=== PATIENT | male | born 1955 | race Caucasian/White ===

== ENCOUNTER 2018-08-02 10:46 | Emergency (ER) | payer OTHER ==
[~2018-08-02] VITALS: Ht 177.8 cm; Wt 77.3 kg
[2018-08-02 10:51] VITALS: Ht 177.8 cm; Wt 77.3 kg
[2018-08-02] MEDS ORDERED: INSULIN (10:51)
[2018-08-02 11:12] LABS: BASOPHILS 0.1 % (0-2); EOSINOPHILS 0.8 % (0-7); HEMATOCRIT 36.7 % (42.0-54.0); IMMATURE GRANULOCYTES 0.3 % (0-5); LYMPHOCYTES 21.5 % (15-50); MCH 28.4 pg (26.0-34.0); MCHC 35.4 g/dL (31.0-37.0); MCV 80.3 fL (80.0-100.0); MEAN PLATELET VOLUME 10.2 fL (7.4-10.4); MONOCYTES 6.4 % (2-11); NEUTROPHILS 70.9 % (40-80); PLATELET COUNT 218 10x3/uL (130-400); RBC 4.57 10x6/uL (4.20-6.10); RDW 13.2 % (11.5-14.5); WBC 7.6 10x3/uL (4.8-10.8)
[2018-08-02 11:32] LABS: ALBUMIN 1.8 g/dL (3.4-5.0); ALKALINE PHOSPHATASE 96 U/L (46-116); ALT (SGPT) 14 U/L (10-68); BILIRUBIN - TOTAL 0.54 mg/dL (0.2-1.3); CALC OSMOLALITY 285 mosm/kg (275-300); CALCIUM 8.5 mg/dL (8.5-10.1); CHLORIDE - SERUM 102 mmol/L (98-107); CREATININE - SERUM 1.1 mg/dL (0.6-1.3); GLUCOSE 289 mg/dL (74-106); POTASSIUM - SERUM 3.6 mmol/L (3.5-5.1); PROTEIN - SERUM 6.3 g/dL (6.4-8.2); SODIUM 136 mmol/L (136-145); UREA NITROGEN 22 mg/dL (7-18); eGFR NON AFRICAN AMERICAN 72 mL/min (90-120)
[2018-08-02 11:38] LABS: APTT 30.5 SECONDS (22.8-39.4); CREATINE KINASE 66 UL (21-232); INR 1.07 (0.85-1.17); PROTIME 13.4 SECONDS (11.6-15.0); TROPONIN-I < 0.017 ng/mL (0.000-0.060)
[2018-08-02 17:40] VITALS: BP 152/82
== END 2018-08-02 17:51 | disposition other institution (70) ==
LOC: D.ER 10:46
PROVIDERS: Family Medicine
DX: G45.9 Transient cerebral ischemic attack, unspecified (principal); I10 Essential (primary) hypertension; E11.69 Type 2 diabetes mellitus with other specified complication

== ENCOUNTER 2018-08-04 23:45 | Emergency (ER) | payer OTHER ==
[~2018-08-04] VITALS: Ht 177.8 cm; Wt 91.8 kg
[~2018-08-04 23:45] MED LIST: INSULIN
[2018-08-04 23:52] VITALS: Ht 177.8 cm; Wt 91.8 kg
[2018-08-04] MEDS ORDERED: LISINOPRIL5 MG PO (23:53)
[2018-08-04] MEDS ORDERED: LOPRESSOR25 MG PO (23:53)
[2018-08-04] MEDS ORDERED: LIPITOR80 MG PO (23:53)
[2018-08-04] MEDS ORDERED: XARELTO20 MG PO (23:54)
[2018-08-05] MEDS ORDERED: ATIVAN1 MG PO (01:00)
[2018-08-05 02:00] VITALS: BP 161/79
== END 2018-08-05 02:00 | disposition home or self-care (01) ==
LOC: D.ER 23:45
DX: R53.1 Weakness (principal); H53.9 Unspecified visual disturbance

== ENCOUNTER 2018-09-08 07:06 | Emergency (ER) | payer OTHER ==
[~2018-09-08] VITALS: Ht 177.8 cm; Wt 90.9 kg
[~2018-09-08 07:06] MED LIST changes: +ATIVAN1 MG PO; +LIPITOR80 MG PO; +LISINOPRIL5 MG PO; +LOPRESSOR25 MG PO; +XARELTO20 MG PO
[2018-09-08 07:11] VITALS: Ht 177.8 cm; Wt 90.9 kg
[2018-09-08] MEDS ORDERED: IMODIUM2 MG PO (07:21)
[2018-09-08 07:37] LABS: BASOPHILS 0.2 % (0-2); EOSINOPHILS 1.3 % (0-7); HEMATOCRIT 36.2 % (42.0-54.0); HEMOGLOBIN 12.2 g/dL (13.5-17.5); IMMATURE GRANULOCYTES 0.3 % (0-5); LYMPHOCYTES 30.6 % (15-50); MCHC 33.7 g/dL (31.0-37.0); MEAN PLATELET VOLUME 9.9 fL (7.4-10.4); MONOCYTES 9.2 % (2-11); NEUTROPHILS 58.4 % (40-80); PLATELET COUNT 189 10x3/uL (130-400); RBC 4.36 10x6/uL (4.20-6.10); RDW 13.2 % (11.5-14.5); WBC 8.6 10x3/uL (4.8-10.8)
[2018-09-08 07:49] LABS: ALBUMIN 1.9 g/dL (3.4-5.0); ANION GAP 10.9 mmol/L (8-16); BILIRUBIN - TOTAL 0.43 mg/dL (0.2-1.3); CALCIUM 8.2 mg/dL (8.5-10.1); CREATININE - SERUM 1.2 mg/dL (0.6-1.3); POTASSIUM - SERUM 4.9 mmol/L (3.5-5.1); PROTEIN - SERUM 6.4 g/dL (6.4-8.2)
[2018-09-08 07:53] LABS: TROPONIN-I 0.031 ng/mL (0.000-0.060)
[2018-09-08 09:47] VITALS: BP 134/60
== END 2018-09-08 10:02 | disposition home or self-care (01) ==
LOC: D.ER 07:06
PROVIDERS: Family Medicine
DX: K52.9 Noninfective gastroenteritis and colitis, unspecified (principal); E11.9 Type 2 diabetes mellitus without complications; Z89.512 Acquired absence of left leg below knee